=== PATIENT | female | born 1995 | race Caucasian/White ===

== ENCOUNTER 2018-11-19 14:46 | Inpatient (IN) | payer BC, OTHER ==
--- NOTE | 2018-11-19 14:55 | PDOC ---
Rapid Medical Evaluation Medical Evaluation: I have performed a brief in-person evaluation of this patient. The patient presents with a chief complaint of: Cloudy urine today along with pelvic pain; denies n/v/d/dysuria/hematuria/vaginal bleeding; has irregular menstrual cycles; last [facility] 07/2018 Pertinent physical exam findings: Abdomen soft, ?gravid I have ordered the following: Labs, UCG, UA, UCx The patient will proceed to the ED for further evaluation. 11/19/18 14:51
[2018-11-19 14:57] VITALS: BMI 22.8
[2018-11-19 15:20] LABS: BASO % 0.4 % (0-2.0); EOS % 0.9 % (0-4.5); HEMATOCRIT 35.2 % (32.4-45.2); HEMOGLOBIN 11.8 GM/dL (10.7-15.3); LYMPH % 25.2 % (8-40); MCH 28.9 pg (25.7-33.7); MCHC 33.5 g/dl (32.0-36.0); MEAN CELL VOLUME 86.3 fl (80-96); MEAN PLT VOLUME 8.4 fl (7.5-11.1); MONO % 7.2 % (3.8-10.2); NEUT % 66.3 % (42.8-82.8); PLATELET COUNT 349 K/MM3 (134-434); RBC 4.08 M/mm3 (3.60-5.2); RDW 15.7 % (11.6-15.6); WHITE BLOOD COUNT 8.3 K/mm3 (4.0-10.0)
--- NOTE | 2018-11-19 15:52 | PDOC ---
History of Present Illness - General Chief Complaint: Pain Stated Complaint: ABD PAIN Time Seen by Provider: 11/19/18 14:51 History Source: Patient - History of Present Illness Timing/Duration: reports: getting worse Past History - Past Medical History Allergies/Adverse Reactions: Allergies Allergy/AdvReac Type Severity Reaction Status Date / Time shrimp Allergy Verified 11/19/18 21:47 Home Medications: Ambulatory Orders NK [No Known Home Medication] 11/19/18 COPD: No - Suicide/Smoking/Psychosocial Hx Smoking History: Unknown if ever smoked Information on smoking cessation initiated: No Hx Alcohol Use: No Drug/Substance Use Hx: No Review of Systems - Review of Systems Constitutional: No: Chills, Fever ABD/GI: Yes: Abdominal cramping. No: Diarrhea, Nausea, Vomiting : Yes: Frequency. No: Burning, Dysuria, Flank Pain, Hematuria *Physical Exam - Vital Signs Last Vital Signs Temp Pulse Resp BP Pulse Ox 98.2 F 70 20 126/87 97 11/19/18 14:51 11/19/18 14:51 11/19/18 14:51 11/19/18 14:51 11/19/18 14:51 - Physical Exam General Appearance: Yes: Appropriately Dressed. No: Apparent Distress HEENT: positive: Normal Voice Neck: positive: Supple Respiratory/Chest: negative: Respiratory Distress Gastrointestinal/Abdominal: positive: Soft, Protuberent. negative: Tender Musculoskeletal: negative: CVA Tenderness Integumentary: positive: Dry, Warm Neurologic: positive: Fully Oriented, Alert, Normal Mood/Affect Moderate Sedation - Procedure Monitoring Vital Signs: Procedure Monitoring Vital Signs Temperature 98.2 F 11/19/18 14:51 Pulse Rate 70 11/19/18 14:51 Respiratory Rate 20 11/19/18 14:51 Blood Pressure 126/87 11/19/18 14:51 O2 Sat by Pulse Oximetry (%) 97 11/19/18 14:51 ED Treatment Course - LABORATORY CBC & Chemistry Diagram: 11/22/18 06:15 11/19/18 20:54 - ADDITIONAL ORDERS Additional order review: 11/19/18 15:12 RBC 4.08 MCV 86.3 MCHC 33.5 RDW 15.7 H MPV 8.4 Neutrophils % 66.3 Lymphocytes % 25.2 Monocytes % 7.2 Eosinophils % 0.9 Basophils % 0.4 Medical Decision Making - Medical Decision Making 11/19/18 15:50 23 F, genital herpes (type 1), not on meds, here w/ intermittent lower abdominal pain with urinary frequency for the past several months. More recently have noticed that her stomach is "swollen" and this a.m. noticed "a clump" of white discharge in underwear. Pt states menses are irregular and LMP was 07/21. Is sexually active and is not on any contraception. For unclear reasons, has not done a home preg test. Is See exam Abd pain w/ urinary freq and protuberant abdomen in pt w/ h/o irreg menses, strongly suspicious for -upreg pending, US if positive -UA 11/19/18 16:08 11/19/18 16:49 Upreg +. Beta and US now pending. If 20 or more week fetus, will transfer to L& D for monitoring. No vag bleed. UA w/ 2+ LE and >80 WBC, will tx. Ucx sent 11/19/18 18:48 US w/ 34w 2d intrauterine preg w/ FHR! There is shortening of cervix w/ possible funnelling and small amount of fluid in canal per report. Pt remains stable. Will transfer to L&D at this time *DC/Admit/Observation/Transfer Diagnosis at time of Disposition: Qualifiers: Weeks of gestation: 34 weeks Qualified Code(s): Z3A.34 - 34 weeks gestation of - Discharge Dispostion Condition at time of disposition: Stable - Referrals - Patient Instructions - Post Discharge Activity
[2018-11-19 16:13] LABS: HCG,QUALITATIVE URINE Positive; URINE APPEARANCE CLOUDY; URINE BILIRUBIN NEGATIVE (<2.0 mg/dL); URINE COLOR YELLOW; URINE GLUCOSE (UA) NEGATIVE (NEGATIVE); URINE KETONE NEGATIVE (NEGATIVE); URINE LEUK ESTERASE 2+ (NEGATIVE); URINE NITRITE NEGATIVE (NEGATIVE); URINE PROTEIN 2+ (NEGATIVE); URINE UROBILINOGEN NEGATIVE mg/dL (0.2-1.0)
[2018-11-19 16:23] LABS: EPI CELLS MODERATE /HPF (FEW); URINE MUCUS RARE
[2018-11-19 18:09] LABS: ANION GAP 9 MMOL/L (8-16); BLOOD UREA NITROGEN 3 mg/dL (7-18); CALCIUM 8.6 mg/dL (8.5-10.1); CHLORIDE 108 mmol/L (98-107); CO2 22 mmol/L (21-32); CREATININE 0.6 mg/dL (0.55-1.3); GLUCOSE,RANDOM 79 mg/dL (74-106); POTASSIUM 3.8 mmol/L (3.5-5.1); SODIUM 138 mmol/L (136-145)
[2018-11-19] MEDS ORDERED: AMPICILLIN - 2 GM in SODIUM CHLORIDE 100 ML IVPB ONE (21:15)
[2018-11-19] MEDS ORDERED: AMPICILLIN - 2 GM in SODIUM CHLORIDE 100 ML IVPB SCH (21:15)
[2018-11-19] MEDS ORDERED: DEXTROSE 5%-LACTATED RINGERS 1,000 ML IV SCH ×2 (21:45→22:00)
[2018-11-19] MEDS ORDERED: AMPICILLIN - 1 GM in SODIUM CHLORIDE 100 ML IVPB SCH (21:45)
[2018-11-19 21:47] LABS: COCAINE, UR NEGATIVE ng/ml (CUTOFF=300); METHADONE, UR NEGATIVE ng/ml (CUTOFF=300); OPIATES, URI NEGATIVE ng/ml (CUTOFF=300); PHENCYCLIDINE,URINE NEGATIVE ng/ml (CUTOFF=25); URINE AMPHETAMINES NEGATIVE ng/ml (CUTOFF=500); URINE BARBITURATES NEGATIVE ng/ml (CUTOFF=200); URINE BENZODIAZEPINES NEGATIVE ng/ml (CUTOFF=200)
[2018-11-19] MEDS ORDERED: BETAMET ACET/BETAMET NA PH 30 MG/5 ML VIAL IM SCH (22:00)
[2018-11-19] MEDS ORDERED: BETAMET ACET/BETAMET NA PH 30 MG/5 ML VIAL ONE (22:04)
[2018-11-19] MEDS ORDERED: AMPICILLIN SODIUM 2 GM VIAL ONE (22:04)
[2018-11-19 22:08] LABS: INR 0.95 (0.83-1.09); PROTHROMBIN TIME (PATIENT) 11.2 SEC (9.7-13.0)
[2018-11-19 22:11] LABS: ACTIVATED PTT 22.8 SECONDS (25.2-36.5)
--- NOTE | 2018-11-19 22:27 | HP ---
Admitting History and Physical - Admission Chief Complaint: Leaking of fluid History of Present Illness: 23 y/o G1 approx 34 1/2 weeks comes not knowing she was . States she had some LOF about 1pm and came to hospital. Yasmani shows vtx, efw 2281 grams 5 lbs, . She didnt know she was . She is asking how to set up adoption. Will draw labs and profile--tox is neg. 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: Alzheimer's, CVA, Dementia, Migraine, Multiple Sclerosis, Peripheral Neuropathy, Parkinson's, Seizure, Syncope, TIA, Vertigo, Other Cardiovascular: No: AFIB, Aneurysm, Aortic Insufficiency, Aortic Stenosis, CAD, CHF, Deep Vein Thrombosis, HTN, Hyperlipdemia, MN, Mitral Insufficiency, Mitral Stenosis, Murmur, Pulmonary Hypertension, Other Pulmonary: No: Asthma, Bronchitis, Cancer, COPD, O2 Dependent, Pneumonia, Previously Intubated, Pulmonary Embolus, Pulmonary Fibrosis, Sleep Apnea, Other Gastrointestinal: No: Ascites, Cancer, Constipation, Crohn's Disease, Diverticulitis, Diverticulosis, Esophageal Varices, Gastritis, GERD, GI Bleed, Hemorrhoids, Hiatal Hernia, Inflamatory Bowel Disease, Irritable Bowel Disease, Pancreatitis, Peptic Ulcer Disease, Ulcerative Colitis, Other Hepatobiliary: No: Cirrhosis, Cholelithiasis, Cholecystitis, Choledocholithiasis , Hepatitis A, Hepatitis B, Hepatitis C, Other Reproductive: No: Ectopic , Endometriosis, Fibroids, PID, Polycystic Ovary Syndrome, Postmenopausal, Other ...: 1 ...Para: 0 Heme/Onc: No: Anemia, B12 Deficiency, Bleeding Disorder, Cancer, Current Chemotherapy, Current Radiation Therapy, Hemochromatosis, Hypercoaguable State, Myeloproliferative Synd, Sickle Cell Disease, Sickle Cell Trait, Thrombocytopenia, Other Infectious Disease: No: AIDS, C-Diff, Herpes Zoster, HIV, MRSA, STD's, Tuberculosis, VREF, Other Psych: No: Addictions, Anxiety, Bipolar, Depression, Panic, Psychosis, Schizophrenia, Other Musculoskeletal: No: Bursitis, Chronic low back pain, Hemiparesis, Hemiplegia, Osteoarthritis, Paraplegia, Other Rheumatology: No: Fibromyalgia, Gout, Lupus, Rheumatoid Arthritis, Sarcoidosis, Vasculitis, Other ENT: No: Allergic Rhinitis, Sinusitis, Other Dermatology: No: Basal Cell, Cellulitis, Eczema, Melanoma, Psoriasis, Squamous Cell, Other - Smoking History Smoking history: Never smoked Have you smoked in the past 12 months: No - Alcohol/Substance Use Hx Alcohol Use: No Home Medications - Allergies Allergies/Adverse Reactions: Allergies Allergy/AdvReac Type Severity Reaction Status Date / Time shrimp Allergy Verified 11/19/18 21:47 - Home Medications Home Medications: Ambulatory Orders NK [No Known Home Medication] 11/19/18 Review of Systems - Review of Systems Constitutional: reports: No Symptoms Eyes: reports: No Symptoms HENT: reports: No Symptoms Neck: reports: No Symptoms Cardiovascular: reports: No Symptoms Respiratory: reports: No Symptoms Gastrointestinal: reports: No Symptoms Genitourinary: reports: No Symptoms Breasts: reports: No Symptoms Reported Musculoskeletal: reports: No Symptoms Integumentary: reports: No Symptoms Neurological: reports: No Symptoms Endocrine: reports: No Symptoms Physical Examination Vital Signs: Vital Signs Temperature 98.7 F 11/19/18 22:00 Pulse Rate 76 11/19/18 22:00 Respiratory Rate 20 11/19/18 22:00 Blood Pressure 124/68 11/19/18 22:00 O2 Sat by Pulse Oximetry (%) 98 11/19/18 19:20 Constitutional: Yes: Well Nourished Eyes: Yes: WNL HENT: Yes: WNL Neck: Yes: WNL Cardiovascular: Yes: WNL Respiratory: Yes: WNL Gastrointestinal: Yes: WNL ...Rectal Exam: Yes: WNL Renal/: Yes: WNL Breast(s): Yes: WNL Musculoskeletal: Yes: WNL Extremities: Yes: WNL (exam finger tip, closed) Labs: CBC, BMP 11/19/18 15:12 Assessment/Plan as above admit labs steroids gbs proph watch for signs of infections vs
[2018-11-19 22:44] LABS: ALBUMIN 2.5 g/dl (3.4-5.0); ALK PHOS 182 U/L (45-117); ANION GAP 8 MMOL/L (8-16); BILIRUBIN,TOTAL 0.2 mg/dL (0.2-1); BLOOD UREA NITROGEN 3 mg/dL (7-18); CHLORIDE 109 mmol/L (98-107); CO2 23 mmol/L (21-32); CREATININE 0.5 mg/dL (0.55-1.3); GLUCOSE,RANDOM 98 mg/dL (74-106); POTASSIUM 3.6 mmol/L (3.5-5.1); SGOT/AST 12 U/L (15-37); SGPT/ALT 10 U/L (13-61); SODIUM 140 mmol/L (136-145)
[2018-11-20] MEDS: DEXTROSE 5%-LACTATED RINGERS 1,000 ML IV SCH ×3 (01:30→22:15)
[2018-11-20] MEDS ORDERED: AMPICILLIN SODIUM 1 GM VIAL ONE ×7 (01:40→22:02)
[2018-11-20] MEDS: AMPICILLIN - 1 GM in SODIUM CHLORIDE 100 ML IVPB SCH ×6 (02:01→22:00)
[2018-11-20] MEDS ORDERED: TUBERCULIN PPD 5 TU/0.1ML SYRINGE (IN PATIENT USE ONLY) ID ONE (10:00)
[2018-11-20] MEDS ORDERED: MAGNESIUM SULFATE IN WATER 4 GM/50 ML IVPB IVPB ONE (10:35)
[2018-11-20] MEDS ORDERED: MAGNESIUM SULFATE 20GM/500ML - 20 GM/500 ML INFUS.BAG ONE (10:35)
[2018-11-20] MEDS ORDERED: STERILE WATER IVPB ONE (10:45)
[2018-11-20] MEDS ORDERED: MAGNESIUM SULFATE IVPB ONE (10:45)
[2018-11-20] MEDS: MAGNESIUM SULFATE 20GM/500ML - 20 GM/500 ML INFUS.BAG IVPB SCH (11:15)
--- NOTE | 2018-11-20 19:24 | PN ---
Progress Note (short form) - Note Progress Note: Assuming care of this 23yo @ 34.2wks with PPROM on 11/19 Pt to receive BMZ #2 this evening around 2200 On Magnesium, started by prior MD Will cont Mag till 10AM for 24 hour course FTH Cat I throughout the day VSS, afebrile. Likely plan for IOL after BMZ course and Mag course completed Plan for adoption, SW consult Froilan Mcguire MD
[2018-11-20] MEDS ORDERED: BETAMET ACET/BETAMET NA PH 30 MG/5 ML VIAL IM SCH (22:00)
[2018-11-21] MEDS: AMPICILLIN - 1 GM in SODIUM CHLORIDE 100 ML IVPB SCH ×6 (02:00→22:00)
[2018-11-21] MEDS ORDERED: AMPICILLIN SODIUM 1 GM VIAL ONE ×6 (02:33→21:54)
[2018-11-21 04:15] LABS: HBsAG SCREEN Negative (Negative)
[2018-11-21] MEDS ORDERED: MAGNESIUM SULFATE 20GM/500ML - 20 GM/500 ML INFUS.BAG ONE (05:59)
[2018-11-21] MEDS: MAGNESIUM SULFATE 20GM/500ML - 20 GM/500 ML INFUS.BAG IVPB SCH (06:03)
--- NOTE | 2018-11-21 08:47 | PN ---
Progress Note, Physician Chief Complaint: Leakage of Fluid History of Present Illness: 23yo @ 34.3wks here with PPROM No complaints. No Fevers/chills. Small +LOF - Current Medication List Current Medications: Active Medications Dextrose/Lactated Ringer's (D5-Lr -) 1,000 mls @ 125 mls/hr IV ASDIR CHIDI Last Admin: 11/20/18 22:15 Dose: 125 mls/hr Magnesium Sulfate (Magnesium Sulfate 20gm/500ml -) 20 gm in 500 mls @ 25 mls/ hr IVPB ASDIR CHIDI; Protocol Last Admin: 11/21/18 06:03 Dose: 25 mls/hr Ampicillin Sodium 1 gm/ Sodium (Chloride) 100 mls @ 200 mls/hr IVPB Q4H CHIDI Stop: 11/22/18 01:59 Last Admin: 11/21/18 06:00 Dose: 200 mls/hr - Objective Vital Signs: Vital Signs Temperature 98.2 F 11/21/18 04:00 Pulse Rate 78 11/21/18 06:00 Respiratory Rate 20 11/21/18 06:00 Blood Pressure 118/68 11/21/18 06:00 O2 Sat by Pulse Oximetry (%) 98 11/19/18 19:20 Constitutional: No: Well Nourished, No Distress, Calm, Anxious, Ashen, Cachectic , Diaphoresis, Mild Distress, Moderate Distress, Severe Distress, Obese, Pallor , Poor Hygeine, Thin, Other Eyes: No: WNL, Conjunctiva Clear, EOM Intact, Cataracts, Diplopia, Occular Prosthesis, PERRL, Ptosis, Sclera Icterus, Tearing, Other HENT: No: WNL, Atraumatic, Normocephalic, Drooling, Epistaxis, Hoarseness, Nasal Congestion, Pharyngeal Erythema, Rhinnorhea, Thrush, Tonsillar Exudate, Other Neck: No: WNL, Supple, Trachea Midline, Decreased ROM, Lymphadenopathy, Rigid, Tenderness, Thyromegaly, Other Cardiovascular: No: WNL, Regular Rate and Rhythm, Bradycardia, Tachycardia, Pulse Irregular, Bruit, JVD, Gallop, Murmur, Rub, S1, S2, S3, S4, Varicosities, Other Respiratory: No: WNL, Regular, CTA Bilaterally, Accessory Muscle Use, Bradypnea , Murali-Metz, Cough, Diminished, Dullness, Hyperresonant, Intubated, Kussmaul , Mechanically Ventilated, On BiPap, On Nasal O2, On Venti-Mask, Orthopnea, Poor Air Entry, Rales, Rhonchi, SOB, SOB on Exertion, Stridor, Tachypnea, Wheezes, Other Gastrointestinal: Yes: Other (soft, NT, gravid) Genitourinary: Yes: Edema: No Peripheral Pulses WNL: Yes Labs: CBC, BMP 11/19/18 15:12 11/19/18 20:54 INR, PTT INR 0.95 (0.83-1.09) 11/19/18 20:54 - ....Imaging Ultrasound: Report Reviewed Assessment/Plan 23yo @ 34.3wks with PPROM s/p BMZ x 2 Finishing Mag course this AM Possible IOL within the next 24 hours Froilan Mcguire MD
[2018-11-21] MEDS: DEXTROSE 5%-LACTATED RINGERS 1,000 ML IV SCH ×2 (09:49→21:45)
[2018-11-21] MEDS ORDERED: SODIUM CHLORIDE 100 ML IVPB ONE ×2 (09:52→13:36)
[2018-11-21] MEDS ORDERED: DINOPROSTONE 10 MG VAGINAL SUPPOSITORY VG ONE (17:23)
[2018-11-21] MEDS ORDERED: PROMETHAZINE HCL 25 MG/1 ML VIAL IVPUSH ONE (17:24)
[2018-11-21] MEDS ORDERED: BUTORPHANOL TARTRATE 1 MG/ML VIAL IVPUSH ONE (17:24)
--- NOTE | 2018-11-21 17:27 | PN ---
Progress Note (short form) - Note Progress Note: 515 pm cx closed 50 vx -3 mr, clear , fhr cat 1, no contraction, induction of labor vs expectant management, vs c/s discussed , wants to be induced with cervidil, risks discussed,
[2018-11-21] MEDS ORDERED: BUTORPHANOL TARTRATE 1 MG/ML VIAL ONE ×2 (18:39)
[2018-11-21] MEDS ORDERED: PROMETHAZINE HCL 25 MG/1 ML VIAL ONE (18:40)
[2018-11-21] MEDS ORDERED: LIDOCAINE HCL 1% PRESERVATIVE FREE - 30ML VIAL ONE (22:27)
[2018-11-21] MEDS ORDERED: OXYTOCIN 20 UNITS in 0.9% NS 20 UNIT/1,000 ML INFUS.BAG IV ONE ×2 (22:39→23:31)
[2018-11-21] MEDS ORDERED: IBUPROFEN 600 MG TABLET (FP) PO PRN (23:02)
[2018-11-21] MEDS ORDERED: BENZOCAINE 20% 57 GM BOTTLE TP PRN (23:02)
[2018-11-21] MEDS ORDERED: BISACODYL 10 MG SUPP.RECT RC PRN (23:02)
[2018-11-21] MEDS ORDERED: BENZOCAINE 28 GM HEMORRHOIDAL OINTMENT TP PRN (23:02)
[2018-11-21] MEDS ORDERED: ACETAMINOPHEN 325 MG TABLET (FP) PO PRN (23:02)
[2018-11-21] MEDS ORDERED: WITCH HAZEL 50% (TUCKS) 40 PAD/JAR PAD TP PRN (23:02)
[2018-11-21] MEDS ORDERED: METHYLERGONOVINE MALEATE 0.2 MG/1 ML AMP IM PRN (23:02)
[2018-11-21] MEDS ORDERED: OXYTOCIN 20 UNITS in 0.9% NS 20 UNIT/1,000 ML INFUS.BAG IV SCH (23:15)
[2018-11-22] MEDS ORDERED: OXYTOCIN 20 UNITS in 0.9% NS 20 UNIT/1,000 ML INFUS.BAG IV SCH (00:30)
[2018-11-22 01:02] LABS: ARTERIAL BLD GAS O2 SATURATION 55.3 % (95-98); ARTERIAL BLOOD GAS BASE EXCESS -2.7 meq/l (-2-2); ARTERIAL BLOOD GAS PCO2 47.5 mmHg (35-45); ARTERIAL BLOOD GAS PO2 27.5 mmHg (80-105); ARTERIAL BLOOD GAS pH 7.32 (7.35-7.45)
[2018-11-22 01:05] LABS: VENOUS PC02 50.9 mmHg (41-51); VENOUS PH 7.29 (7.31-7.41); VENOUS PO2 13.1 mmHg (30-40)
[2018-11-22] MEDS ORDERED: OXYTOCIN 20 UNITS in 0.9% NS 20 UNIT/1,000 ML INFUS.BAG IV ONE (03:21)
--- NOTE | 2018-11-22 06:32 | PN ---
Progress Note (short form) - Note Progress Note: ppd 1doing well, no excess vaginal bleeding , voids ok CBC, BMP 11/19/18 15:12 11/19/18 20:54 Last Vital Signs Temp Pulse Resp BP Pulse Ox 97.6 F 56 L 18 128/52 L 99 11/22/18 06:00 11/22/18 06:00 11/22/18 06:00 11/22/18 06:00 11/21/18 23:55 abdomen soft, no distension, no cva uterus firm, non tender lochia mild no calf tenderness plan ambulate ,cbc
[2018-11-22 08:00] LABS: BASO % 0.1 % (0-2.0); HEMATOCRIT 24.7 % (32.4-45.2); HEMOGLOBIN 8.3 GM/dL (10.7-15.3); LYMPH % 6.8 % (8-40); MCH 28.6 pg (25.7-33.7); MCHC 33.6 g/dl (32.0-36.0); MEAN CELL VOLUME 85.3 fl (80-96); MEAN PLT VOLUME 8.9 fl (7.5-11.1); NEUT % 85.1 % (42.8-82.8); PLATELET COUNT 255 K/MM3 (134-434); RDW 15.4 % (11.6-15.6); WHITE BLOOD COUNT 16.6 K/mm3 (4.0-10.0)
[2018-11-22] MEDS: FERROUS SO4 325 MG TABLET (FP) PO SCH ×2 (09:15→18:10)
[2018-11-22] MEDS: PRENATAL VITAMINS W/ FOLIC ACID TABLET (FP) PO SCH (09:15)
[2018-11-22] MEDS ORDERED: SENNOSIDES/DOCUSATE COMBO (SENNA PLUS) TABLET (UD) PO PRN (22:00)
[2018-11-23] MEDS: FERROUS SO4 325 MG TABLET (FP) PO SCH (09:00)
[2018-11-23] MEDS: PRENATAL VITAMINS W/ FOLIC ACID TABLET (FP) PO SCH (09:20)
[2018-11-23 10:03] VITALS: BP 126/78; PULSE 68; TEMP 98.7
--- NOTE | 2018-11-29 12:46 | PATH ---
Surgical Pathology Report Patient Name: FER GONZALEZ [facility]. Rec. 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 Specimen(s) Received PLACENTA Clinical History 23-year-old , denies any past history. Patient had no care. Final Diagnosis PLACENTA, DELIVERY: FOCALLY DISRUPTED SMALL (356 GRAM) THIRD TRIMESTER PLACENTA WITH MARGINALLY INSERTED THREE VESSEL UMBILICAL CORD AND UNREMARKABLE PLACENTAL MEMBRANES. Electronically Signed Jim Olea M.D. Gross Description The specimen is received fresh labeled placenta and is a 356 gram, 15.0 x 13.0 x 2.6 cm. placenta with attached membranes and umbilical cord. The attached membranes are alexis, translucent with focal opacities and insert marginally. The umbilical cord measures 12 cm. in length and averages 0.9 cm. in diameter. The cord inserts at the margin. No true knots or strictures are identified. Cut surface of the umbilical cord reveals 3 vessels. The surface is burnette-blue with minimal fibrin deposition and appropriate caliber vessels. The maternal surface is red-brown with focal defects. Sectioning reveals red-brown, spongy parenchyma. No lesions are identified. Membership Director sections are submitted in three cassettes as follows: 1- membrane rolls and umbilical cord; 2-3- full thickness sections of placenta. 11/28/2018 [facility]
== END 2018-11-23 11:25 | disposition home or self-care (01) | DRG 560 ==
LOC: JER 14:46 → JLDR 19:20 → JER 19:24 → JLDR 20:40 → J3W 11-22 03:45
PROVIDERS: ADMIT Obstetrics & Gynecology; ATTEND Obstetrics & Gynecology
PROC: 10E0XZZ Delivery of Products of Conception, External Approach (ICD-10-PCS; principal; 2018-11-21)
DX: O42.913 Preterm premature rupture of membranes, unspecified as to length of time between rupture and onset of labor, third trimester (principal); Z3A.34 34 weeks gestation of pregnancy; Z37.0 Single live birth
CPT/HCPCS: 36415; 36600; 59025; 59409; 76815; 76817-TC; 80048; 80053; 80307; 81003; 81015; 82803; 83735; 84702; 84703; 85025; 85610; 85730; 86593; 86762; 86850; 86900; 86901; 87086; 87340; 87389; 87491; 87591; 88307-TC; 96372; 99285-25